=== PATIENT | male | born 1930 | race Caucasian/White ===

== ENCOUNTER 2016-08-12 14:23 | Emergency (ER) | payer MEDICARE, OTHER ==
[~2016-08-12 14:23] MED LIST: ACET-868 PO; AMLO10TA2 PO; ASPI81TA2 PO; BISA10SU8 RC; CRAN450T3 PO; FINA5TAB11 PO; LISI40TA4 PO; LOVA40TA2 PO; MAGN400O6 PO; MULT-70 PO; SENN8.6T6 PO
== END 2016-08-12 15:40 | disposition left against medical advice (07) ==
LOC: ER 14:25
DX: Z53.21 Procedure and treatment not carried out due to patient leaving prior to being seen by health care provider (principal)

== ENCOUNTER 2016-09-24 20:01 | Inpatient (IN) | payer MEDICARE, OTHER ==
[~2016-09-24] VITALS: Ht 160 cm; Wt 69.9 kg
[2016-09-24 20:47] LABS: BASOPHILS # (AUTO) 0.3 /CMM (0.0-0.2); BASOPHILS % (AUTO) 1.6 % (0.0-2.0); DIFF TOTAL % 100 %; EOSINOPHILS # (AUTO) 0.1 /CMM (0.0-0.7); EOSINOPHILS % (AUTO) 0.4 % (0.0-6.0); HEMATOCRIT 41 % (39-51); HEMOGLOBIN 13.2 g/dL (13.5-17.5); LYMPHOCYTES # (AUTO) 7.9 /CMM (0.8-4.8); LYMPHOCYTES % (AUTO) 50.7 % (20.0-44.0); MEAN CORPUSCULAR HEMOGLOBIN 27 PG (26.0-33.0); MEAN CORPUSCULAR HGB CONC 32 g/dl (31.0-36.0); MEAN CORPUSCULAR VOLUME 86 fL (80-96); MONOCYTES % (AUTO) 6.5 % (2.0-12.0); NEUTROPHILS # (AUTO) 6.5 /CMM (1.8-8.9); NEUTROPHILS % (AUTO) 40.8 % (43.0-81.0); PLATELET COUNT (AUTO) 215 /CMM (150-450); RED BLOOD CELL COUNT(AUTO) 4.83 MIL/uL (4.5-6.0); WHITE BLOOD COUNT (AUTO) 15.8 K/uL (4.3-11.0)
[2016-09-24 20:51] LABS: ANION GAP 13 (5-14); CALCIUM, SERUM 9.1 mg/dL (8.5-10.1); CARBON DIOXIDE 29 mmol/L (21-32); CHLORIDE 106 mmol/L (98-107); CREATININE 2.2 mg/dL (0.6-1.3); GLUCOSE 162 mg/dL (74-106); POTASSIUM 4.3 mmol/L (3.5-5.1); SODIUM SERUM 143 mmol/L (136-145); UREA NITROGEN, BLOOD 49 mg/dL (7-18)
[2016-09-24 20:58] LABS: ACETAMINOPHEN 2 ug/ml (10-30); ALANINE AMINOTRANSFERASE 22 U/L (12-78); ALBUMIN 3.8 g/dL (3.4-5.0); ASPARTATE AMINOTRANSFERASE 20 U/L (15-37); BILIRUBIN,DIRECT 0.1 mg/dL (0.0-0.2); BILIRUBIN,TOTAL 0.5 mg/dL (0.2-1.0); INDIRECT BILIRUBIN 0.4 mg/dL (0.0-1.1); TOTAL PROTEIN, SERUM 7.2 g/dL (6.4-8.2)
[2016-09-24 20:59] LABS: SALICYLATE < 2.8 mg/dL (2.8-20.0)
[2016-09-24 22:50] LABS: ADD UA MICROSCOPIC YES; KETONES,URINE TRACE (NEGATIVE); LEUKOCYTE ESTERASE ,URINE NEGATIVE (NEGATIVE)
[2016-09-24 22:53] LABS: ADD URINE CULTURE NO; RBC,URINE 0-2 /HPF (0-2); WBC,URINE 0-2 /HPF (0-3)
[2016-09-24 22:54] LABS: MUCUS,URINE Moderate /LPF (None Seen)
[2016-09-24 22:57] LABS: CANNABINOID, URINE NEGATIVE (NEGATIVE); PHENCYCLIDINE SCREEN,URINE NEGATIVE (NEGATIVE)
[2016-09-24 23:15] VITALS: BP 155/75
[2016-09-24] MEDS ORDERED: Z GUARD REMEDY 2 OZ OINT TP PRN (23:30)
[2016-09-24] MEDS ORDERED: BISACODYL SUPP (10 MG) 10 MG/SUPP.RECT SUPP.RECT RC PRN (23:30)
[2016-09-24] MEDS ORDERED: MAGNESIUM HYDROXIDE 30 ML UDC PO PRN ×2 (23:30)
[2016-09-24] MEDS ORDERED: IV NS 0.9% 1,000 ML IV PRN (23:30)
[2016-09-24] MEDS ORDERED: ZOLPIDEM TARTRATE 5 MG TABLET PO PRN (23:30)
[2016-09-24] MEDS ORDERED: HYDROCODONE/APAP 5/325MG 1 EACH TABLET PO PRN (23:30)
[2016-09-24] MEDS ORDERED: ONDANSETRON HCL/PF 4 MG/2 ML VIAL IVP PRN (23:30)
[2016-09-24] MEDS ORDERED: MAG HYDROX/AL HYDROX/SIMETH 30 ML UDC PO PRN (23:30)
[2016-09-24] MEDS ORDERED: ACETAMINOPHEN 325 MG TABLET PO PRN ×3 (23:30)
[2016-09-25] MEDS ORDERED: IV NS 0.9% 1,000 ML ONE (00:34)
[2016-09-25] MEDS ORDERED: IV SET PRIMARY PUMP SET 1 EA INFUS.SET MC ONE (00:35)
[2016-09-25] MEDS ORDERED: LORAZEPAM INJ 2 MG/ML VIAL IM ONE (03:30)
[2016-09-25] MEDS ORDERED: HALOPERIDOL LACTATE INJ 5 MG/ML VIAL IM ONE (03:30)
[2016-09-25 08:00] VITALS: BP 169/74
[2016-09-25] MEDS ORDERED: SENNOSIDES 8.6 MG TABLET PO SCH (08:30)
[2016-09-25] MEDS: MULTIVITAMINS,THERAPEUTIC 1 UDTAB TABLET PO SCH (08:54)
[2016-09-25] MEDS: AMLODIPINE BESYLATE 10 MG TABLET PO SCH (08:55)
[2016-09-25] MEDS: PANTOPRAZOLE 40 MG TABLET.DR PO SCH (08:55)
[2016-09-25] MEDS: ASPIRIN 81 MG TAB.CHEW PO SCH (08:55)
[2016-09-25] MEDS: FINASTERIDE (5 MG) 5 MG TABLET PO SCH (08:56)
[2016-09-25] MEDS: SENNOSIDES 8.6 MG TABLET PO SCH (08:56)
[2016-09-25 16:00] VITALS: BP 130/53
[2016-09-25 18:00] VITALS: BP 130/53
[2016-09-25] MEDS ORDERED: QUETIAPINE FUMARATE 25 MG TABLET PO PRN ×2 (18:37→19:00)
[2016-09-25] MEDS: QUETIAPINE FUMARATE 25 MG TABLET PO SCH (18:42)
[2016-09-25 20:00] VITALS: BP 128/63
[2016-09-25] MEDS ORDERED: ATORVASTATIN 40 MG TABLET PO SCH (22:00)
[2016-09-26] MEDS: PANTOPRAZOLE 40 MG TABLET.DR PO SCH (07:30)
[2016-09-26] MEDS: SENNOSIDES 8.6 MG TABLET PO SCH (09:00)
[2016-09-26] MEDS: AMLODIPINE BESYLATE 10 MG TABLET PO SCH (09:00)
[2016-09-26] MEDS: FINASTERIDE (5 MG) 5 MG TABLET PO SCH (09:00)
[2016-09-26] MEDS: ASPIRIN 81 MG TAB.CHEW PO SCH (09:00)
[2016-09-26] MEDS: QUETIAPINE FUMARATE 25 MG TABLET PO SCH (09:00)
[2016-09-26] MEDS: MULTIVITAMINS,THERAPEUTIC 1 UDTAB TABLET PO SCH (09:00)
[2016-09-26] MEDS ORDERED: MULT-24 PO (14:34)
[2016-09-26] MEDS ORDERED: ATOR40TA PO (14:34)
== END 2016-09-26 13:22 | DRG 640 ==
LOC: ER 20:04 → MEDSG2 22:07
DX: R62.7 Adult failure to thrive (principal); N17.0 Acute kidney failure with tubular necrosis; G93.41 Metabolic encephalopathy; F03.91 Unspecified dementia, unspecified severity, with behavioral disturbance; I12.9 Hypertensive chronic kidney disease with stage 1 through stage 4 chronic kidney disease, or unspecified chronic kidney disease; N40.0 Benign prostatic hyperplasia without lower urinary tract symptoms; R26.81 Unsteadiness on feet; R53.1 Weakness; F41.9 Anxiety disorder, unspecified; F29 Unspecified psychosis not due to a substance or known physiological condition; N18.9 Chronic kidney disease, unspecified; I25.10 Atherosclerotic heart disease of native coronary artery without angina pectoris; E11.22 Type 2 diabetes mellitus with diabetic chronic kidney disease; E78.5 Hyperlipidemia, unspecified
CPT/HCPCS: 36415; 71010-TC; 80048-TC; 80076-TC; 80305; 81000-TC; 84484-TC; 85025-TC; A4606; G0480; G6039-TC; J7030; Z7610

== ENCOUNTER 2016-09-26 13:39 | Inpatient (IN) | payer MEDICARE, OTHER ==
[~2016-09-26] VITALS: Ht 162.6 cm; Wt 68.0 kg
[2016-09-26] MEDS ORDERED: MAGNESIUM HYDROXIDE 30 ML UDC PO PRN (14:30)
[2016-09-26] MEDS ORDERED: LORAZEPAM 0.5 MG TABLET PO PRN (14:30)
[2016-09-26] MEDS ORDERED: ACETAMINOPHEN 325 MG TABLET PO PRN ×2 (14:30→16:30)
[2016-09-26] MEDS ORDERED: MAG HYDROX/AL HYDROX/SIMETH 30 ML UDC PO PRN (14:30)
[2016-09-26] MEDS ORDERED: MULT-24 PO (14:34)
[2016-09-26] MEDS ORDERED: ATOR40TA PO (14:34)
[2016-09-26 14:40] VITALS: BP 141/60
[2016-09-26 16:00] VITALS: BP 141/60
[2016-09-26] MEDS ORDERED: SENNOSIDES 8.6 MG TABLET PO PRN (16:30)
[2016-09-26] MEDS ORDERED: BISACODYL SUPP (10 MG) 10 MG/SUPP.RECT SUPP.RECT RC PRN (16:30)
[2016-09-26 20:00] VITALS: BP 140/73
[2016-09-26] MEDS: ATORVASTATIN 40 MG TABLET PO SCH (22:00)
[2016-09-27 08:00] VITALS: BP 150/76
[2016-09-27 08:10] LABS: ALBUMIN 3.1 g/dL (3.4-5.0); BILIRUBIN,TOTAL 0.7 mg/dL (0.2-1.0); CALCIUM, SERUM 8.6 mg/dL (8.5-10.1); CREATININE 1.2 mg/dL (0.6-1.3); TOTAL PROTEIN, SERUM 6.1 g/dL (6.4-8.2)
[2016-09-27] MEDS: AMLODIPINE BESYLATE 10 MG TABLET PO SCH (08:30)
[2016-09-27] MEDS: FINASTERIDE (5 MG) 5 MG TABLET PO SCH (08:32)
[2016-09-27] MEDS: LISINOPRIL (20MG) 20 MG TABLET PO SCH (08:33)
[2016-09-27] MEDS: MULTIVITAMINS,THERAPEUTIC 1 UDTAB TABLET PO SCH (08:34)
[2016-09-27] MEDS: ASPIRIN 81 MG TAB.CHEW PO SCH (08:34)
[2016-09-27] MEDS ORDERED: Medication Not On Formulary EA (Cranberry Extract (Cranberry) 450 MG) PO SCH (09:00)
[2016-09-27 16:00] VITALS: BP 150/75
[2016-09-27] MEDS: QUETIAPINE FUMARATE 25 MG TABLET PO SCH ×2 (17:21→22:26)
[2016-09-27 20:00] VITALS: BP 143/97
[2016-09-27] MEDS: ATORVASTATIN 40 MG TABLET PO SCH (22:26)
[2016-09-28] MEDS: ZOLPIDEM TARTRATE 5 MG TABLET PO PRN ×2 (00:20→22:23)
[2016-09-28 08:00] VITALS: BP 127/62
[2016-09-28] MEDS: ASPIRIN 81 MG TAB.CHEW PO SCH (08:24)
[2016-09-28] MEDS: QUETIAPINE FUMARATE 25 MG TABLET PO SCH ×3 (08:24→22:23)
[2016-09-28] MEDS: LISINOPRIL (20MG) 20 MG TABLET PO SCH (08:24)
[2016-09-28] MEDS: MULTIVITAMINS,THERAPEUTIC 1 UDTAB TABLET PO SCH (08:28)
[2016-09-28] MEDS: AMLODIPINE BESYLATE 10 MG TABLET PO SCH (08:28)
[2016-09-28] MEDS: FINASTERIDE (5 MG) 5 MG TABLET PO SCH (08:28)
[2016-09-28 16:00] VITALS: BP 152/64
[2016-09-28] MEDS ORDERED: QUETIAPINE FUMARATE 25 MG TABLET PO PRN (17:00)
[2016-09-28 20:00] VITALS: BP 137/78
[2016-09-28] MEDS: ATORVASTATIN 40 MG TABLET PO SCH (22:22)
[2016-09-29 08:00] VITALS: BP 119/60
[2016-09-29] MEDS: LISINOPRIL (20MG) 20 MG TABLET PO SCH ×2 (08:48→09:00)
[2016-09-29] MEDS: MULTIVITAMINS,THERAPEUTIC 1 UDTAB TABLET PO SCH ×2 (08:48→09:00)
[2016-09-29] MEDS: FINASTERIDE (5 MG) 5 MG TABLET PO SCH ×2 (08:48→09:00)
[2016-09-29] MEDS: AMLODIPINE BESYLATE 10 MG TABLET PO SCH ×2 (08:48→09:00)
[2016-09-29] MEDS: QUETIAPINE FUMARATE 25 MG TABLET PO SCH ×4 (08:48→21:39)
[2016-09-29] MEDS: ASPIRIN 81 MG TAB.CHEW PO SCH ×2 (08:49→09:00)
[2016-09-29 16:00] VITALS: BP 128/98
[2016-09-29 19:45] VITALS: BP 142/68
[2016-09-29] MEDS: ATORVASTATIN 40 MG TABLET PO SCH (21:37)
[2016-09-29] MEDS: ZOLPIDEM TARTRATE 5 MG TABLET PO PRN (21:40)
[2016-09-30 08:00] VITALS: BP 132/91
[2016-09-30] MEDS: MULTIVITAMINS,THERAPEUTIC 1 UDTAB TABLET PO SCH (09:00)
[2016-09-30] MEDS: AMLODIPINE BESYLATE 10 MG TABLET PO SCH (09:00)
[2016-09-30] MEDS: ASPIRIN 81 MG TAB.CHEW PO SCH (09:00)
[2016-09-30] MEDS: QUETIAPINE FUMARATE 25 MG TABLET PO SCH ×2 (09:00→21:53)
[2016-09-30] MEDS: LISINOPRIL (20MG) 20 MG TABLET PO SCH (09:00)
[2016-09-30] MEDS: FINASTERIDE (5 MG) 5 MG TABLET PO SCH (09:00)
[2016-09-30 16:20] VITALS: BP 140/80
[2016-09-30 20:00] VITALS: BP 140/73
[2016-09-30] MEDS: ATORVASTATIN 40 MG TABLET PO SCH (21:53)
[2016-09-30] MEDS: ZOLPIDEM TARTRATE 5 MG TABLET PO PRN (21:56)
[2016-10-01 08:00] VITALS: BP 129/60
[2016-10-01] MEDS: FINASTERIDE (5 MG) 5 MG TABLET PO SCH ×2 (09:00→09:11)
[2016-10-01] MEDS: LISINOPRIL (20MG) 20 MG TABLET PO SCH ×2 (09:00→09:11)
[2016-10-01] MEDS: ASPIRIN 81 MG TAB.CHEW PO SCH ×2 (09:00→09:11)
[2016-10-01] MEDS: MULTIVITAMINS,THERAPEUTIC 1 UDTAB TABLET PO SCH ×2 (09:00→09:11)
[2016-10-01] MEDS: AMLODIPINE BESYLATE 10 MG TABLET PO SCH ×2 (09:00→09:12)
[2016-10-01 16:00] VITALS: BP 130/57
[2016-10-01 20:18] VITALS: BP 124/73
[2016-10-01] MEDS: ATORVASTATIN 40 MG TABLET PO SCH (21:24)
[2016-10-01] MEDS: QUETIAPINE FUMARATE 25 MG TABLET PO SCH (21:25)
[2016-10-02 07:38] LABS: CALCIUM, SERUM 8.7 mg/dL (8.5-10.1); CREATININE 1.5 mg/dL (0.6-1.3); POTASSIUM 4.3 mmol/L (3.5-5.1)
[2016-10-02 08:10] VITALS: BP 105/60
[2016-10-02] MEDS: FINASTERIDE (5 MG) 5 MG TABLET PO SCH (09:00)
[2016-10-02] MEDS: LISINOPRIL (20MG) 20 MG TABLET PO SCH (09:00)
[2016-10-02] MEDS: AMLODIPINE BESYLATE 10 MG TABLET PO SCH (09:00)
[2016-10-02] MEDS: MULTIVITAMINS,THERAPEUTIC 1 UDTAB TABLET PO SCH (09:00)
[2016-10-02] MEDS: ASPIRIN 81 MG TAB.CHEW PO SCH (09:00)
[2016-10-02] MEDS: ATORVASTATIN 40 MG TABLET PO SCH (21:27)
[2016-10-02] MEDS: ZOLPIDEM TARTRATE 5 MG TABLET PO PRN (21:27)
[2016-10-02] MEDS ORDERED: QUETIAPINE FUMARATE 25 MG TABLET PO SCH (22:00)
[2016-10-03] MEDS: FINASTERIDE (5 MG) 5 MG TABLET PO SCH (08:36)
[2016-10-03] MEDS: MULTIVITAMINS,THERAPEUTIC 1 UDTAB TABLET PO SCH (08:36)
[2016-10-03] MEDS: LISINOPRIL (20MG) 20 MG TABLET PO SCH (08:36)
[2016-10-03] MEDS: ASPIRIN 81 MG TAB.CHEW PO SCH (08:36)
[2016-10-03] MEDS: AMLODIPINE BESYLATE 10 MG TABLET PO SCH (08:36)
[2016-10-03 09:12] VITALS: BP 111/76
== END 2016-10-03 11:00 | DRG 885 ==
LOC: GPS 13:39
PROVIDERS: ADMIT Psychiatry & Neurology Psychiatry; ATTEND Family Medicine
DX: F29 Unspecified psychosis not due to a substance or known physiological condition (principal); N18.3 Chronic kidney disease, stage 3 (moderate); N17.0 Acute kidney failure with tubular necrosis; F03.91 Unspecified dementia, unspecified severity, with behavioral disturbance; E87.0 Hyperosmolality and hypernatremia; N40.0 Benign prostatic hyperplasia without lower urinary tract symptoms; I12.9 Hypertensive chronic kidney disease with stage 1 through stage 4 chronic kidney disease, or unspecified chronic kidney disease; I25.10 Atherosclerotic heart disease of native coronary artery without angina pectoris; E78.5 Hyperlipidemia, unspecified; E11.22 Type 2 diabetes mellitus with diabetic chronic kidney disease; R62.7 Adult failure to thrive; D72.829 Elevated white blood cell count, unspecified; Z79.899 Other long term (current) drug therapy
CPT/HCPCS: 36415; 80048-TC; 80053-TC; 80061-TC; 97001-TC; 97116-TC; 97530-TC

== ENCOUNTER 2016-11-13 19:47 | Inpatient (IN) | payer MEDICARE, OTHER ==
[~2016-11-13] VITALS: Ht 167.6 cm; Wt 72.6 kg
[~2016-11-13 19:47] MED LIST changes: +ATOR40TA PO; -LOVA40TA2 PO; -MAGN400O6 PO; +MULT-24 PO; -MULT-70 PO
[2016-11-13 20:28] LABS: BASOPHILS # (AUTO) 0.2 /CMM (0.0-0.2); BASOPHILS % (AUTO) 1.1 % (0.0-2.0); EOSINOPHILS # (AUTO) 0.2 /CMM (0.0-0.7); EOSINOPHILS % (AUTO) 1.3 % (0.0-6.0); HEMATOCRIT 40 % (39-51); LYMPHOCYTES # (AUTO) 6.6 /CMM (0.8-4.8); MEAN CORPUSCULAR HEMOGLOBIN 28 PG (26.0-33.0); MEAN CORPUSCULAR HGB CONC 33 g/dl (31.0-36.0); MEAN CORPUSCULAR VOLUME 86 fL (80-96); MONOCYTES # (AUTO) 0.8 /CMM (0.1-1.30); NEUTROPHILS # (AUTO) 8.3 /CMM (1.8-8.9); NEUTROPHILS % (AUTO) 51.6 % (43.0-81.0); PLATELET COUNT (AUTO) 252 /CMM (150-450); RDW COEFFICIENT OF VARIATION 13.9 (11.5-15.0); RED BLOOD CELL COUNT(AUTO) 4.63 MIL/uL (4.5-6.0); WHITE BLOOD COUNT (AUTO) 16.1 K/uL (4.3-11.0)
[2016-11-13 20:40] LABS: ALANINE AMINOTRANSFERASE 40 U/L (12-78); ALBUMIN 3.3 g/dL (3.4-5.0); ALKALINE PHOSPHATASE 122 U/L (46-116); ASPARTATE AMINOTRANSFERASE 27 U/L (15-37); BILIRUBIN,DIRECT 0.1 mg/dL (0.0-0.2); BILIRUBIN,TOTAL 0.6 mg/dL (0.2-1.0); CALCIUM, SERUM 9.1 mg/dL (8.5-10.1); CARBON DIOXIDE 29 mmol/L (21-32); CHLORIDE 106 mmol/L (98-107); CREATININE 1.2 mg/dL (0.6-1.3); GLUCOSE 103 mg/dL (74-106); POTASSIUM 4.3 mmol/L (3.5-5.1); SODIUM SERUM 142 mmol/L (136-145); TOTAL PROTEIN, SERUM 6.7 g/dL (6.4-8.2); UREA NITROGEN, BLOOD 28 mg/dL (7-18)
[2016-11-13 20:41] LABS: ACETAMINOPHEN 0 ug/ml (10-30); ALCOHOL, BLOOD < 3 mg/dL (0-0); SALICYLATE 1.8 mg/dL (2.8-20.0)
[2016-11-13] MEDS ORDERED: LIDOCAINE 2% JEL UROJET 10 ML MM STA (20:55)
[2016-11-13] MEDS ORDERED: LIDOCAINE 2% JEL UROJET 10 ML MM ONE (20:56)
[2016-11-13 21:22] LABS: APPEARANCE,URINE Clear (CLEAR); BILIRUBIN,URINE Negative (NEGATIVE); BLOOD, URINE Large Ery/uL (NEGATIVE); COLOR,URINE Yellow (YELLOW); KETONES,URINE Negative (NEGATIVE); LEUKOCYTE ESTERASE ,URINE Small (NEGATIVE); NITRITE, URINE Positive (NEGATIVE); PH,URINE 6.5 (5.0-8.0); PROTEIN,URINE >=300 mg/dl (NEGATIVE); UGLUCOSE Negative (NEGATIVE); UROBILINOGEN,URINE 0.2 EU/dL (0.2)
[2016-11-13 21:24] LABS: T4 (THYROXINE) 9.3 ug/dL (4.7-13.3); THYROID STIMULATING HORMONE 0.702 uIU/mL (0.358-3.74)
[2016-11-13 21:27] LABS: CANNABINOID, URINE NEGATIVE (NEGATIVE); PHENCYCLIDINE SCREEN,URINE NEGATIVE (NEGATIVE)
[2016-11-13 21:51] LABS: ADD URINE CULTURE YES; BACTERIA,URINE Many /HPF (None Seen); SQUAMOUS EPITHELIAL CELL,UR Rare /HPF (None Seen); WBC,URINE TOO NUMEROUS TO COUN /HPF (0-3)
[2016-11-13 21:52] LABS: URINE AMORPHOUS URATE Few /HPF (None Seen)
[2016-11-13] MEDS ORDERED: IV SET PRIMARY PUMP SET 1 EA INFUS.SET MC ONE ×2 (21:59→23:26)
[2016-11-13] MEDS ORDERED: IV NS 0.9% 100 ML IV ONE (21:59)
[2016-11-13] MEDS ORDERED: AZTREONAM 1 G VIAL ONE (21:59)
[2016-11-13] MEDS ORDERED: LEVOFLOXACIN 750 MG /D5W 150ML 150 ML IV ONE ×2 (22:00→23:26)
[2016-11-13] MEDS ORDERED: AZTREONAM 1 G in IV NS 0.9% 100 ML IV ONE (22:00)
[2016-11-13 23:51] VITALS: BP 143/95
[2016-11-14] VITALS: BP 143/95
[2016-11-14] MEDS ORDERED: MAGNESIUM HYDROXIDE 30 ML UDC PO PRN (00:30)
[2016-11-14] MEDS ORDERED: ZOLPIDEM TARTRATE 5 MG TABLET PO PRN (00:30)
[2016-11-14] MEDS ORDERED: MAG HYDROX/AL HYDROX/SIMETH 30 ML UDC PO PRN (00:30)
[2016-11-14] MEDS ORDERED: ACETAMINOPHEN 325 MG TABLET PO PRN (00:30)
[2016-11-14] MEDS ORDERED: Z GUARD REMEDY 2 OZ OINT TP PRN (00:30)
[2016-11-14] MEDS ORDERED: ENOXAPARIN SODIUM 30 MG/0.3 ML DISP.SYRIN SQ SCH (00:30)
[2016-11-14] MEDS ORDERED: SENNOSIDES 8.6 MG TABLET PO PRN (00:30)
[2016-11-14] MEDS ORDERED: ONDANSETRON HCL/PF 4 MG/2 ML VIAL IVP PRN (00:30)
[2016-11-14] MEDS: IV 1/2NS 1000 ML 1,000 ML IV PRN ×2 (00:54→18:34)
[2016-11-14] MEDS ORDERED: LORAZEPAM INJ 2 MG/ML VIAL ONE ×2 (01:07→03:57)
[2016-11-14] MEDS: LORAZEPAM INJ 2 MG/ML VIAL IV PRN (01:13)
[2016-11-14 04:00] VITALS: BP 140/87
[2016-11-14] MEDS ORDERED: LORAZEPAM INJ 2 MG/ML VIAL IV ONE (04:00)
[2016-11-14 07:13] LABS: PHOSPHORUS 3.6 mg/dL (2.5-4.9)
[2016-11-14 08:00] VITALS: BP 129/78
[2016-11-14] MEDS: FINASTERIDE (5 MG) 5 MG TABLET PO SCH ×2 (09:00→09:56)
[2016-11-14] MEDS: MULTIVITAMINS,THERAPEUTIC 1 UDTAB TABLET PO SCH ×2 (09:00→09:56)
[2016-11-14] MEDS: LISINOPRIL (20MG) 20 MG TABLET PO SCH ×2 (09:00→09:56)
[2016-11-14] MEDS: ASPIRIN 81 MG TAB.CHEW PO SCH ×2 (09:00→09:56)
[2016-11-14] MEDS: AMLODIPINE BESYLATE 10 MG TABLET PO SCH ×2 (09:00→09:56)
[2016-11-14] MEDS: AZTREONAM 1 G in IV NS 0.9% 100 ML IV SCH ×2 (09:48→22:00)
[2016-11-14] MEDS ORDERED: SECONDARY IV SET 1 EA INFUS.SET MC ONE (09:48)
[2016-11-14] MEDS: PANTOPRAZOLE 40 MG TABLET.DR PO SCH (09:56)
[2016-11-14 11:58] LABS: CALCIUM, SERUM 8.5 mg/dL (8.5-10.1); CREATININE 1.2 mg/dL (0.6-1.3); POTASSIUM 4.2 mmol/L (3.5-5.1)
[2016-11-14 12:12] LABS: BASOPHILS % (AUTO) 0.2 % (0.0-2.0); EOSINOPHILS # (AUTO) 0.1 /CMM (0.0-0.7); EOSINOPHILS % (AUTO) 0.7 % (0.0-6.0); HEMATOCRIT 37 % (39-51); HEMOGLOBIN 11.9 g/dL (13.5-17.5); LYMPHOCYTES # (AUTO) 5.5 /CMM (0.8-4.8); LYMPHOCYTES % (AUTO) 30.1 % (20.0-44.0); MEAN CORPUSCULAR HEMOGLOBIN 28 PG (26.0-33.0); MEAN CORPUSCULAR HGB CONC 32 g/dl (31.0-36.0); MEAN CORPUSCULAR VOLUME 87 fL (80-96); MONOCYTES # (AUTO) 0.7 /CMM (0.1-1.30); MONOCYTES % (AUTO) 3.6 % (2.0-12.0); NEUTROPHILS % (AUTO) 65.4 % (43.0-81.0); PLATELET COUNT (AUTO) 232 /CMM (150-450); RDW COEFFICIENT OF VARIATION 14.7 (11.5-15.0); RED BLOOD CELL COUNT(AUTO) 4.29 MIL/uL (4.5-6.0); WHITE BLOOD COUNT (AUTO) 18.3 K/uL (4.3-11.0)
[2016-11-14 16:00] VITALS: BP 161/85
[2016-11-14] MEDS: ATORVASTATIN 40 MG TABLET PO SCH (21:55)
[2016-11-14] MEDS: QUETIAPINE FUMARATE 25 MG TABLET PO SCH (21:55)
[2016-11-14] MEDS: ENOXAPARIN SODIUM 30 MG/0.3 ML DISP.SYRIN SQ SCH (21:57)
[2016-11-14 22:00] VITALS: BP 157/92
[2016-11-15 06:55] LABS: BASOPHILS % (AUTO) 0.3 % (0.0-2.0); EOSINOPHILS # (AUTO) 0.1 /CMM (0.0-0.7); EOSINOPHILS % (AUTO) 1.1 % (0.0-6.0); HEMATOCRIT 35 % (39-51); HEMOGLOBIN 11.4 g/dL (13.5-17.5); LYMPHOCYTES # (AUTO) 6.9 /CMM (0.8-4.8); LYMPHOCYTES % (AUTO) 52.4 % (20.0-44.0); MEAN CORPUSCULAR HEMOGLOBIN 28 PG (26.0-33.0); MEAN CORPUSCULAR HGB CONC 32 g/dl (31.0-36.0); MEAN CORPUSCULAR VOLUME 87 fL (80-96); MONOCYTES % (AUTO) 7.3 % (2.0-12.0); NEUTROPHILS # (AUTO) 5.1 /CMM (1.8-8.9); NEUTROPHILS % (AUTO) 38.9 % (43.0-81.0); PLATELET COUNT (AUTO) 175 /CMM (150-450); RDW COEFFICIENT OF VARIATION 14.9 (11.5-15.0); RED BLOOD CELL COUNT(AUTO) 4.07 MIL/uL (4.5-6.0); WHITE BLOOD COUNT (AUTO) 13.2 K/uL (4.3-11.0)
[2016-11-15 07:21] LABS: CALCIUM, SERUM 8.4 mg/dL (8.5-10.1); CREATININE 1.2 mg/dL (0.6-1.3); MAGNESIUM 2.1 mg/dL (1.8-2.4); POTASSIUM 4.9 mmol/L (3.5-5.1)
[2016-11-15 08:00] VITALS: BP 161/88
[2016-11-15] MEDS: PANTOPRAZOLE 40 MG TABLET.DR PO SCH (08:12)
[2016-11-15] MEDS: MULTIVITAMINS,THERAPEUTIC 1 UDTAB TABLET PO SCH (08:12)
[2016-11-15] MEDS: ASPIRIN 81 MG TAB.CHEW PO SCH (08:12)
[2016-11-15] MEDS: LISINOPRIL (20MG) 20 MG TABLET PO SCH (08:12)
[2016-11-15] MEDS: FINASTERIDE (5 MG) 5 MG TABLET PO SCH (08:12)
[2016-11-15] MEDS: AMLODIPINE BESYLATE 10 MG TABLET PO SCH (08:13)
[2016-11-15] MEDS: AZTREONAM 1 G in IV NS 0.9% 100 ML IV SCH ×2 (08:16→21:01)
[2016-11-15 09:59] LABS: ANISOCYTOSIS 1+; EOSINOPHILS % (MANUAL) 1 % (0-4); LYMPHOCYTES % (MANUAL) 47 % (16-48); MONOCYTES % (MANUAL) 2 % (0-11.0); NEUTROPHILS % (MANUAL) 50 (42-76); PLATELET ESTIMATE ADEQUATE
[2016-11-15] MEDS: LORAZEPAM INJ 2 MG/ML VIAL IV PRN ×2 (10:57→17:01)
[2016-11-15] MEDS: IV 1/2NS 1000 ML 1,000 ML IV PRN (12:19)
[2016-11-15 16:00] VITALS: BP 151/87
[2016-11-15 20:20] VITALS: BP 142/75
[2016-11-15] MEDS: ENOXAPARIN SODIUM 30 MG/0.3 ML DISP.SYRIN SQ SCH (21:06)
[2016-11-15] MEDS: ATORVASTATIN 40 MG TABLET PO SCH (21:08)
[2016-11-15] MEDS: QUETIAPINE FUMARATE 25 MG TABLET PO SCH (21:08)
[2016-11-16] MEDS: IV 1/2NS 1000 ML 1,000 ML IV PRN ×2 (01:43→21:35)
[2016-11-16] MEDS: PANTOPRAZOLE 40 MG TABLET.DR PO SCH ×2 (07:30→12:16)
[2016-11-16 08:00] VITALS: BP 146/74
[2016-11-16] MEDS: LISINOPRIL (20MG) 20 MG TABLET PO SCH ×2 (09:00→12:14)
[2016-11-16] MEDS: AMLODIPINE BESYLATE 10 MG TABLET PO SCH ×2 (09:00→12:14)
[2016-11-16] MEDS: FINASTERIDE (5 MG) 5 MG TABLET PO SCH ×2 (09:00→12:16)
[2016-11-16] MEDS: MULTIVITAMINS,THERAPEUTIC 1 UDTAB TABLET PO SCH ×2 (09:00→12:15)
[2016-11-16] MEDS: ASPIRIN 81 MG TAB.CHEW PO SCH ×2 (09:00→12:16)
[2016-11-16] MEDS: AZTREONAM 1 G in IV NS 0.9% 100 ML IV SCH ×2 (09:46→21:30)
[2016-11-16 14:59] LABS: BASOPHILS % (AUTO) 0.2 % (0.0-2.0); EOSINOPHILS # (AUTO) 0.1 /CMM (0.0-0.7); EOSINOPHILS % (AUTO) 1.1 % (0.0-6.0); HEMATOCRIT 36 % (39-51); HEMOGLOBIN 11.6 g/dL (13.5-17.5); LYMPHOCYTES # (AUTO) 5.2 /CMM (0.8-4.8); LYMPHOCYTES % (AUTO) 39.4 % (20.0-44.0); MEAN CORPUSCULAR HEMOGLOBIN 28 PG (26.0-33.0); MEAN CORPUSCULAR HGB CONC 33 g/dl (31.0-36.0); MEAN CORPUSCULAR VOLUME 86 fL (80-96); MONOCYTES # (AUTO) 0.7 /CMM (0.1-1.30); NEUTROPHILS # (AUTO) 7.2 /CMM (1.8-8.9); NEUTROPHILS % (AUTO) 54.3 % (43.0-81.0); PLATELET COUNT (AUTO) 213 /CMM (150-450); RDW COEFFICIENT OF VARIATION 14.6 (11.5-15.0); RED BLOOD CELL COUNT(AUTO) 4.19 MIL/uL (4.5-6.0); WHITE BLOOD COUNT (AUTO) 13.2 K/uL (4.3-11.0)
[2016-11-16 15:11] LABS: CALCIUM, SERUM 8.2 mg/dL (8.5-10.1); MAGNESIUM 1.9 mg/dL (1.8-2.4); PHOSPHORUS 3.7 mg/dL (2.5-4.9); POTASSIUM 3.9 mmol/L (3.5-5.1)
[2016-11-16 16:00] VITALS: BP 164/73
[2016-11-16] MEDS: HALOPERIDOL LACTATE INJ 5 MG/ML VIAL IM PRN ×2 (18:38→18:39)
[2016-11-16 19:59] VITALS: BP 147/69
[2016-11-16 20:00] VITALS: BP 147/69
[2016-11-16] MEDS: ENOXAPARIN SODIUM 30 MG/0.3 ML DISP.SYRIN SQ SCH (21:36)
[2016-11-16] MEDS: ATORVASTATIN 40 MG TABLET PO SCH (21:43)
[2016-11-16] MEDS: QUETIAPINE FUMARATE 25 MG TABLET PO SCH (21:43)
[2016-11-17] MEDS: PANTOPRAZOLE 40 MG TABLET.DR PO SCH ×2 (07:30→09:43)
[2016-11-17] MEDS: LISINOPRIL (20MG) 20 MG TABLET PO SCH ×2 (09:00→09:43)
[2016-11-17] MEDS: MULTIVITAMINS,THERAPEUTIC 1 UDTAB TABLET PO SCH ×2 (09:00→09:43)
[2016-11-17] MEDS: FINASTERIDE (5 MG) 5 MG TABLET PO SCH ×2 (09:00→09:43)
[2016-11-17] MEDS: ASPIRIN 81 MG TAB.CHEW PO SCH ×2 (09:00→09:43)
[2016-11-17] MEDS: AMLODIPINE BESYLATE 10 MG TABLET PO SCH ×2 (09:00→09:44)
[2016-11-17] MEDS: AZTREONAM 1 G in IV NS 0.9% 100 ML IV SCH ×2 (09:29→20:53)
[2016-11-17] MEDS: HALOPERIDOL LACTATE INJ 5 MG/ML VIAL IM PRN ×2 (15:24→19:27)
[2016-11-17 16:00] VITALS: BP 155/79
[2016-11-17 20:00] VITALS: BP_SYST 128; BP_SYST 176; BP_DIAS 72; BP_DIAS 89
[2016-11-17 20:30] VITALS: BP 128/72
[2016-11-17] MEDS ORDERED: IV SET PRIMARY PUMP SET 1 EA INFUS.SET MC ONE (20:45)
[2016-11-17] MEDS ORDERED: SECONDARY IV SET 1 EA INFUS.SET MC ONE (20:46)
[2016-11-17] MEDS: IV 1/2NS 1000 ML 1,000 ML IV PRN (20:50)
[2016-11-17] MEDS: QUETIAPINE FUMARATE 25 MG TABLET PO SCH (22:13)
[2016-11-17] MEDS: ATORVASTATIN 40 MG TABLET PO SCH (22:13)
[2016-11-17] MEDS: ENOXAPARIN SODIUM 30 MG/0.3 ML DISP.SYRIN SQ SCH (22:14)
[2016-11-18] MEDS: PANTOPRAZOLE 40 MG TABLET.DR PO SCH (07:30)
[2016-11-18] MEDS: AZTREONAM 1 G in IV NS 0.9% 100 ML IV SCH ×2 (08:36→21:17)
[2016-11-18] MEDS: MULTIVITAMINS,THERAPEUTIC 1 UDTAB TABLET PO SCH (08:46)
[2016-11-18] MEDS: FINASTERIDE (5 MG) 5 MG TABLET PO SCH (08:46)
[2016-11-18] MEDS: ASPIRIN 81 MG TAB.CHEW PO SCH (08:46)
[2016-11-18] MEDS: AMLODIPINE BESYLATE 10 MG TABLET PO SCH (08:47)
[2016-11-18] MEDS: LISINOPRIL (20MG) 20 MG TABLET PO SCH (08:48)
[2016-11-18] MEDS: QUETIAPINE FUMARATE 25 MG TABLET PO SCH ×3 (10:30→21:16)
[2016-11-18] MEDS: HALOPERIDOL LACTATE INJ 5 MG/ML VIAL IM PRN (13:10)
[2016-11-18 14:48] LABS: BASOPHILS % (AUTO) 0.2 % (0.0-2.0); EOSINOPHILS # (AUTO) 0.2 /CMM (0.0-0.7); EOSINOPHILS % (AUTO) 1.2 % (0.0-6.0); HEMATOCRIT 37 % (39-51); HEMOGLOBIN 11.8 g/dL (13.5-17.5); LYMPHOCYTES # (AUTO) 5.3 /CMM (0.8-4.8); LYMPHOCYTES % (AUTO) 32.8 % (20.0-44.0); MEAN CORPUSCULAR HEMOGLOBIN 28 PG (26.0-33.0); MEAN CORPUSCULAR HGB CONC 32 g/dl (31.0-36.0); MEAN CORPUSCULAR VOLUME 86 fL (80-96); MONOCYTES # (AUTO) 1.1 /CMM (0.1-1.30); MONOCYTES % (AUTO) 6.6 % (2.0-12.0); NEUTROPHILS # (AUTO) 9.5 /CMM (1.8-8.9); NEUTROPHILS % (AUTO) 59.2 % (43.0-81.0); PLATELET COUNT (AUTO) 219 /CMM (150-450); RDW COEFFICIENT OF VARIATION 14.3 (11.5-15.0); RED BLOOD CELL COUNT(AUTO) 4.27 MIL/uL (4.5-6.0); WHITE BLOOD COUNT (AUTO) 16.1 K/uL (4.3-11.0)
[2016-11-18 14:49] LABS: CALCIUM, SERUM 8.1 mg/dL (8.5-10.1); CREATININE 1.2 mg/dL (0.6-1.3); MAGNESIUM 1.8 mg/dL (1.8-2.4); PHOSPHORUS 3.2 mg/dL (2.5-4.9); POTASSIUM 3.6 mmol/L (3.5-5.1)
[2016-11-18 20:00] VITALS: BP 158/77
[2016-11-18] MEDS: ATORVASTATIN 40 MG TABLET PO SCH (21:16)
[2016-11-18] MEDS: ENOXAPARIN SODIUM 30 MG/0.3 ML DISP.SYRIN SQ SCH (21:16)
[2016-11-19] MEDS ORDERED: IV NS 0.9% 0 ML IV ONE (01:41)
[2016-11-19] MEDS ORDERED: IV NS 0.9% 100 ML IV ONE (01:44)
[2016-11-19] MEDS ORDERED: SECONDARY IV SET 1 EA INFUS.SET MC ONE ×2 (02:23→16:45)
[2016-11-19] MEDS ORDERED: IMIPENEM/CILASTATIN 500 MG/VIAL IV ONE (02:40)
[2016-11-19] MEDS: IV 1/2NS 1000 ML 1,000 ML IV PRN ×2 (02:56→18:42)
[2016-11-19] MEDS ORDERED: IMIPENEM/CILASTATIN 500 MG in IV NS 0.9% 100 ML IV SCH (05:00)
[2016-11-19] MEDS: PANTOPRAZOLE 40 MG TABLET.DR PO SCH (07:30)
[2016-11-19 08:00] VITALS: BP 154/85
[2016-11-19] MEDS: ASPIRIN 81 MG TAB.CHEW PO SCH (09:00)
[2016-11-19] MEDS: FINASTERIDE (5 MG) 5 MG TABLET PO SCH (09:00)
[2016-11-19] MEDS: AMLODIPINE BESYLATE 10 MG TABLET PO SCH (09:00)
[2016-11-19] MEDS: QUETIAPINE FUMARATE 25 MG TABLET PO SCH ×3 (09:00→21:44)
[2016-11-19] MEDS: MULTIVITAMINS,THERAPEUTIC 1 UDTAB TABLET PO SCH (09:00)
[2016-11-19] MEDS: LISINOPRIL (20MG) 20 MG TABLET PO SCH (09:00)
[2016-11-19 10:01] LABS: MAGNESIUM 1.8 mg/dL (1.8-2.4); PHOSPHORUS 3.4 mg/dL (2.5-4.9); POTASSIUM 3.8 mmol/L (3.5-5.1)
[2016-11-19 10:02] LABS: BASOPHILS % (AUTO) 0.4 % (0.0-2.0); EOSINOPHILS # (AUTO) 0.3 /CMM (0.0-0.7); EOSINOPHILS % (AUTO) 1.9 % (0.0-6.0); HEMATOCRIT 36 % (39-51); HEMOGLOBIN 11.4 g/dL (13.5-17.5); LYMPHOCYTES # (AUTO) 6.7 /CMM (0.8-4.8); LYMPHOCYTES % (AUTO) 49.8 % (20.0-44.0); MEAN CORPUSCULAR HEMOGLOBIN 28 PG (26.0-33.0); MEAN CORPUSCULAR HGB CONC 32 g/dl (31.0-36.0); MEAN CORPUSCULAR VOLUME 87 fL (80-96); MONOCYTES % (AUTO) 7.5 % (2.0-12.0); NEUTROPHILS # (AUTO) 5.5 /CMM (1.8-8.9); NEUTROPHILS % (AUTO) 40.4 % (43.0-81.0); PLATELET COUNT (AUTO) 204 /CMM (150-450); RDW COEFFICIENT OF VARIATION 14.8 (11.5-15.0); RED BLOOD CELL COUNT(AUTO) 4.12 MIL/uL (4.5-6.0); WHITE BLOOD COUNT (AUTO) 13.5 K/uL (4.3-11.0)
[2016-11-19] MEDS ORDERED: HALOPERIDOL LACTATE INJ 5 MG/ML VIAL IM PRN (10:30)
[2016-11-19 10:46] LABS: ANISOCYTOSIS 1+; EOSINOPHILS % (MANUAL) 1 % (0-4); LYMPHOCYTES % (MANUAL) 47 % (16-48); MONOCYTES % (MANUAL) 6 % (0-11.0); NEUTROPHILS % (MANUAL) 46 (42-76); PLATELET ESTIMATE ADEQUATE
[2016-11-19] MEDS: CLOTRIMAZOLE 1% 15 GM TUBE TP SCH ×2 (13:13→17:03)
[2016-11-19 16:10] VITALS: BP 133/75
[2016-11-19] MEDS: MEROPENEM 500 MG in IV NS 0.9% 50 ML IV SCH (16:52)
[2016-11-19 20:00] VITALS: BP 113/68
[2016-11-19] MEDS: ATORVASTATIN 40 MG TABLET PO SCH (21:44)
[2016-11-19] MEDS: ENOXAPARIN SODIUM 30 MG/0.3 ML DISP.SYRIN SQ SCH (21:45)
[2016-11-20] MEDS: MEROPENEM 500 MG in IV NS 0.9% 50 ML IV SCH ×2 (04:41→17:47)
[2016-11-20] MEDS: IV 1/2NS 1000 ML 1,000 ML IV PRN (06:46)
[2016-11-20 08:00] VITALS: BP 158/88
[2016-11-20] MEDS: QUETIAPINE FUMARATE 25 MG TABLET PO SCH ×3 (08:20→22:48)
[2016-11-20] MEDS: LISINOPRIL (20MG) 20 MG TABLET PO SCH (08:20)
[2016-11-20] MEDS: AMLODIPINE BESYLATE 10 MG TABLET PO SCH (08:20)
[2016-11-20] MEDS: MULTIVITAMINS,THERAPEUTIC 1 UDTAB TABLET PO SCH (08:21)
[2016-11-20] MEDS: ASPIRIN 81 MG TAB.CHEW PO SCH (08:21)
[2016-11-20] MEDS: FINASTERIDE (5 MG) 5 MG TABLET PO SCH (08:21)
[2016-11-20] MEDS: PANTOPRAZOLE 40 MG TABLET.DR PO SCH (08:21)
[2016-11-20] MEDS: CLOTRIMAZOLE 1% 15 GM TUBE TP SCH ×2 (09:49→17:47)
[2016-11-20 10:01] LABS: BASOPHILS % (AUTO) 0.3 % (0.0-2.0); EOSINOPHILS # (AUTO) 0.2 /CMM (0.0-0.7); EOSINOPHILS % (AUTO) 1.8 % (0.0-6.0); HEMATOCRIT 36 % (39-51); HEMOGLOBIN 11.4 g/dL (13.5-17.5); LYMPHOCYTES # (AUTO) 5.7 /CMM (0.8-4.8); LYMPHOCYTES % (AUTO) 47.1 % (20.0-44.0); MEAN CORPUSCULAR HEMOGLOBIN 28 PG (26.0-33.0); MEAN CORPUSCULAR HGB CONC 32 g/dl (31.0-36.0); MEAN CORPUSCULAR VOLUME 86 fL (80-96); MONOCYTES # (AUTO) 0.8 /CMM (0.1-1.30); MONOCYTES % (AUTO) 6.6 % (2.0-12.0); NEUTROPHILS # (AUTO) 5.3 /CMM (1.8-8.9); NEUTROPHILS % (AUTO) 44.2 % (43.0-81.0); PLATELET COUNT (AUTO) 232 /CMM (150-450); RDW COEFFICIENT OF VARIATION 14.8 (11.5-15.0); RED BLOOD CELL COUNT(AUTO) 4.12 MIL/uL (4.5-6.0)
[2016-11-20 10:16] LABS: CALCIUM, SERUM 8.2 mg/dL (8.5-10.1); MAGNESIUM 1.9 mg/dL (1.8-2.4); POTASSIUM 3.6 mmol/L (3.5-5.1)
[2016-11-20 10:27] LABS: EOSINOPHILS % (MANUAL) 2 % (0-4); LYMPHOCYTES % (MANUAL) 54 % (16-48); MONOCYTES % (MANUAL) 3 % (0-11.0)
[2016-11-20 10:34] LABS: NEUTROPHILS % (MANUAL) 41 (42-76)
[2016-11-20] MEDS: LORAZEPAM INJ 2 MG/ML VIAL IV PRN (16:14)
[2016-11-20 17:57] VITALS: BP 163/69
[2016-11-20] MEDS: ATORVASTATIN 40 MG TABLET PO SCH (22:48)
[2016-11-20] MEDS: ENOXAPARIN SODIUM 30 MG/0.3 ML DISP.SYRIN SQ SCH (22:49)
[2016-11-21] MEDS: IV 1/2NS 1000 ML 1,000 ML IV PRN (04:34)
[2016-11-21] MEDS: MEROPENEM 500 MG in IV NS 0.9% 50 ML IV SCH (04:40)
[2016-11-21] MEDS: PANTOPRAZOLE 40 MG TABLET.DR PO SCH (08:28)
[2016-11-21] MEDS: ASPIRIN 81 MG TAB.CHEW PO SCH (08:28)
[2016-11-21] MEDS: MULTIVITAMINS,THERAPEUTIC 1 UDTAB TABLET PO SCH (08:28)
[2016-11-21] MEDS: FINASTERIDE (5 MG) 5 MG TABLET PO SCH (08:28)
[2016-11-21] MEDS: QUETIAPINE FUMARATE 25 MG TABLET PO SCH (08:29)
[2016-11-21 08:30] VITALS: BP 157/93
[2016-11-21] MEDS: AMLODIPINE BESYLATE 10 MG TABLET PO SCH (08:30)
[2016-11-21] MEDS: LISINOPRIL (20MG) 20 MG TABLET PO SCH (08:30)
[2016-11-21] MEDS: CLOTRIMAZOLE 1% 15 GM TUBE TP SCH ×2 (08:33→16:25)
[2016-11-21] MEDS ORDERED: QUET25TA PO ×2 (12:01)
[2016-11-21] MEDS ORDERED: SULF1TAB48 PO (12:08)
[2016-11-21] MEDS ORDERED: MEROPENEM 1 G in IV NS 0.9% 100 ML IV SCH (17:00)
[2016-11-21] MEDS ORDERED: QUETIAPINE FUMARATE 25 MG TABLET PO SCH (17:00)
[2016-11-21] MEDS: LORAZEPAM INJ 2 MG/ML VIAL IV PRN (18:18)
[2016-11-21] MEDS ORDERED: ENOXAPARIN SODIUM 30 MG/0.3 ML DISP.SYRIN SQ SCH (21:00)
== END 2016-11-21 20:30 | DRG 871 ==
LOC: ER 19:52 → MED 22:48 → TELE 11-14 02:27 → MED 11-14 15:35
PROVIDERS: ADMIT Nurse Practitioner Acute Care; ATTEND Nurse Practitioner Acute Care
DX: A41.9 Sepsis, unspecified organism (principal); G93.40 Encephalopathy, unspecified; N17.0 Acute kidney failure with tubular necrosis; N39.0 Urinary tract infection, site not specified; F03.91 Unspecified dementia, unspecified severity, with behavioral disturbance; J98.11 Atelectasis; I25.10 Atherosclerotic heart disease of native coronary artery without angina pectoris; Z95.1 Presence of aortocoronary bypass graft; I12.9 Hypertensive chronic kidney disease with stage 1 through stage 4 chronic kidney disease, or unspecified chronic kidney disease; N18.9 Chronic kidney disease, unspecified; N40.0 Benign prostatic hyperplasia without lower urinary tract symptoms; R62.7 Adult failure to thrive; E86.0 Dehydration; E78.5 Hyperlipidemia, unspecified; E11.22 Type 2 diabetes mellitus with diabetic chronic kidney disease; F29 Unspecified psychosis not due to a substance or known physiological condition; F41.9 Anxiety disorder, unspecified; Z79.82 Long term (current) use of aspirin; J44.9 Chronic obstructive pulmonary disease, unspecified; Z79.899 Other long term (current) drug therapy; Z88.0 Allergy status to penicillin
CPT/HCPCS: 36415; 71010-TC; 80048-TC; 80061-TC; 80076-TC; 80305; 81000-TC; 83605-TC; 83735-TC; 84100-TC; 84436-TC; 84443-TC; 84481; 85025-TC; 87040-TC; 87081-TC; 87086-TC; 87186-TC; 97003-TC; A4216; A4606; A6402; G0480; G6039-TC; J0743; J1630; J1650; J1956; J2060; J2185; J3490; J7030; Z7610

== ENCOUNTER 2016-11-21 21:22 | Inpatient (IN) | payer MEDICARE, OTHER ==
[~2016-11-21] VITALS: Ht 172.7 cm; Wt 81.6 kg
[2016-11-21 20:30] VITALS: BP 140/84
--- NOTE | 2016-11-21 20:30 | NUR ---
GPS WINE STEWARD/STEWARDESS NOTES ADMITTED THIS 86 YEAR OLD MALE ON 5150 HOLD FOR DANGER TO OTHERS AND GRAVE DISABILITY. PATIENT CAME FROM MED. SURG. PER HOLD, PATIENT WAS WITH INCREASED AGITATION AND COMBATIVE BEHAVIOR. ON FACE TO FACE PATIENT IS ALERT AND ORIENTED X 1, CONFUSED, DISORGANIZED AND DISORIENTED. VITAL SIGNS CHECKED AND RECORDED. BLOOD SUGAR CHECKED, WAS 98. ASSESSMENT OF BODY SYSTEMS COMPLETED. SKIN/ BODY CHECK DONE. SCABS NOTED ON THE HEAD AND BILATERAL ARMS. BRUISES WERE ALSO NOTED ON BOTH ARMS. PICTURES TAKEN. PATIENT ADMITTED UNDER FOR PSYCH AND DR. JOHN HARDIN FOR MEDICAL. PATIENT HAS A PSYCH HISTORY OF ANXIETY AND PSYCHOSIS AND MEDICAL HISTORY OF DEMENTIA, HYPERTENSION, DIABETES, BPH, AND CABG. MRSA SWAB DONE. PATIENT FOR PT EVAL. WILL MONITOR PATIENT Q 15 MINS FOR SAFETY AND BEHAVIORS.
[~2016-11-21 21:22] MED LIST changes: +QUET25TA PO; +SULF1TAB48 PO
[2016-11-21] MEDS ORDERED: MAG HYDROX/AL HYDROX/SIMETH 30 ML UDC PO PRN (21:30)
[2016-11-21] MEDS ORDERED: MAGNESIUM HYDROXIDE 30 ML UDC PO PRN (21:30)
[2016-11-21] MEDS ORDERED: ACETAMINOPHEN 325 MG TABLET PO PRN ×2 (21:30→22:00)
[2016-11-21] MEDS ORDERED: SENNOSIDES 8.6 MG TABLET PO PRN (22:00)
[2016-11-21] MEDS ORDERED: BISACODYL SUPP (10 MG) 10 MG/SUPP.RECT SUPP.RECT RC PRN (22:00)
[2016-11-21] MEDS ORDERED: ATORVASTATIN 40 MG TABLET ONE (22:44)
[2016-11-21] MEDS: ATORVASTATIN 40 MG TABLET PO SCH (23:09)
--- NOTE | 2016-11-22 06:30 | NUR ---
GPS RN NOTES CALL MADE TO PATIENTS DAUGHTER. NOTIFIED HER OF PATIENTS TRANSFER TO [facility] UNIT.
[2016-11-22 07:34] LABS: BASOPHILS % (AUTO) 0.5 % (0.0-2.0); EOSINOPHILS # (AUTO) 0.2 /CMM (0.0-0.7); HEMATOCRIT 35 % (39-51); HEMOGLOBIN 11.4 g/dL (13.5-17.5); LYMPHOCYTES % (AUTO) 60.9 % (20.0-44.0); MEAN CORPUSCULAR HEMOGLOBIN 28 PG (26.0-33.0); MEAN CORPUSCULAR HGB CONC 32 g/dl (31.0-36.0); MEAN CORPUSCULAR VOLUME 86 fL (80-96); MONOCYTES # (AUTO) 0.7 /CMM (0.1-1.30); MONOCYTES % (AUTO) 6.8 % (2.0-12.0); NEUTROPHILS # (AUTO) 2.9 /CMM (1.8-8.9); NEUTROPHILS % (AUTO) 29.8 % (43.0-81.0); PLATELET COUNT (AUTO) 265 /CMM (150-450); RDW COEFFICIENT OF VARIATION 14.4 (11.5-15.0); RED BLOOD CELL COUNT(AUTO) 4.11 MIL/uL (4.5-6.0); WHITE BLOOD COUNT (AUTO) 9.8 K/uL (4.3-11.0)
[2016-11-22 07:55] LABS: CHOLESTEROL 166 mg/dL (<200); HDL CHOLESTEROL 36 mg/dL (40-60); LDL 107 mg/dL (0-99); TRIGLYCERIDES 64 mg/dL (30-150)
[2016-11-22 08:00] VITALS: BP 131/76
[2016-11-22 08:01] LABS: ALBUMIN 2.5 g/dL (3.4-5.0); BILIRUBIN,TOTAL 0.5 mg/dL (0.2-1.0); CALCIUM, SERUM 8.6 mg/dL (8.5-10.1); CREATININE 0.9 mg/dL (0.6-1.3); TOTAL PROTEIN, SERUM 5.8 g/dL (6.4-8.2)
[2016-11-22 08:43] LABS: ANISOCYTOSIS 1+; LYMPHOCYTES % (MANUAL) 57 % (16-48); MONOCYTES % (MANUAL) 6 % (0-11.0); NEUTROPHILS % (MANUAL) 37 (42-76); PLATELET ESTIMATE ADEQUATE
[2016-11-22] MEDS: ASPIRIN 81 MG TAB.CHEW PO SCH ×2 (09:00→09:10)
[2016-11-22] MEDS: SULFAMETH/TRIMETH 800/160 MG 1 UDTAB TABLET PO SCH ×3 (09:00→21:36)
[2016-11-22] MEDS: AMLODIPINE BESYLATE 10 MG TABLET PO SCH ×2 (09:00→09:11)
[2016-11-22] MEDS: MULTIVITAMINS,THERAPEUTIC 1 UDTAB TABLET PO SCH ×2 (09:00→09:11)
[2016-11-22] MEDS: FINASTERIDE (5 MG) 5 MG TABLET PO SCH ×2 (09:00→09:11)
[2016-11-22] MEDS: LISINOPRIL (20MG) 20 MG TABLET PO SCH ×2 (09:00→09:11)
[2016-11-22] MEDS ORDERED: Medication Not On Formulary EA (Cranberry Extract (Cranberry) 450 MG) PO SCH (09:00)
--- NOTE | 2016-11-22 10:50 | NUR ---
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 saldivar with orders. orders acknowledged.
--- NOTE | 2016-11-22 15:48 | NUR ---
Initial DC Plan: Patient resides at [address], [place] [address]; [phone]. MAYTE Paz spoke to the patient's dtr Ana Van ([phone]) who wants patient to return. MAYTE will follow up with facility to see if they will re-accept the patient. SW will help form a safe and proper discharge.
[2016-11-22 16:00] VITALS: BP 104/71
[2016-11-22] MEDS: QUETIAPINE FUMARATE 25 MG TABLET PO SCH ×3 (16:34→21:50)
[2016-11-22] MEDS: LORAZEPAM 0.5 MG TABLET PO PRN (20:04)
[2016-11-22 20:14] VITALS: BP_SYST 101; BP_SYST 171; BP_DIAS 101; BP_DIAS 56
[2016-11-22] MEDS: ZOLPIDEM TARTRATE 5 MG TABLET PO PRN (21:50)
[2016-11-22] MEDS: ATORVASTATIN 40 MG TABLET PO SCH (21:50)
[2016-11-23 08:00] VITALS: BP 129/79
[2016-11-23] MEDS: SULFAMETH/TRIMETH 800/160 MG 1 UDTAB TABLET PO SCH ×2 (08:27→20:03)
[2016-11-23] MEDS: AMLODIPINE BESYLATE 10 MG TABLET PO SCH (08:27)
[2016-11-23] MEDS: MULTIVITAMINS,THERAPEUTIC 1 UDTAB TABLET PO SCH (08:27)
[2016-11-23] MEDS: ASPIRIN 81 MG TAB.CHEW PO SCH (08:27)
[2016-11-23] MEDS: FINASTERIDE (5 MG) 5 MG TABLET PO SCH (08:27)
[2016-11-23] MEDS: LISINOPRIL (20MG) 20 MG TABLET PO SCH (08:28)
[2016-11-23] MEDS: QUETIAPINE FUMARATE 25 MG TABLET PO SCH ×3 (08:28→21:14)
[2016-11-23 16:00] VITALS: BP 137/73
[2016-11-23 20:00] VITALS: BP 139/79
[2016-11-23 20:22] LABS: BASOPHILS # (AUTO) 0.1 /CMM (0.0-0.2); BASOPHILS % (AUTO) 0.6 % (0.0-2.0); EOSINOPHILS # (AUTO) 0.2 /CMM (0.0-0.7); EOSINOPHILS % (AUTO) 1.6 % (0.0-6.0); HEMATOCRIT 36 % (39-51); HEMOGLOBIN 11.6 g/dL (13.5-17.5); LYMPHOCYTES # (AUTO) 5.7 /CMM (0.8-4.8); MEAN CORPUSCULAR HEMOGLOBIN 27 PG (26.0-33.0); MEAN CORPUSCULAR HGB CONC 32 g/dl (31.0-36.0); MEAN CORPUSCULAR VOLUME 86 fL (80-96); MONOCYTES # (AUTO) 0.7 /CMM (0.1-1.30); MONOCYTES % (AUTO) 6.8 % (2.0-12.0); NEUTROPHILS # (AUTO) 3.9 /CMM (1.8-8.9); PLATELET COUNT (AUTO) 258 /CMM (150-450); RDW COEFFICIENT OF VARIATION 14.3 (11.5-15.0); RED BLOOD CELL COUNT(AUTO) 4.23 MIL/uL (4.5-6.0); WHITE BLOOD COUNT (AUTO) 10.5 K/uL (4.3-11.0)
[2016-11-23 20:24] LABS: CALCIUM, SERUM 8.9 mg/dL (8.5-10.1); CREATININE 1.2 mg/dL (0.6-1.3); POTASSIUM 4.1 mmol/L (3.5-5.1)
[2016-11-23] MEDS: ATORVASTATIN 40 MG TABLET PO SCH (21:14)
[2016-11-23] MEDS: ZOLPIDEM TARTRATE 5 MG TABLET PO PRN (22:08)
[2016-11-24 08:00] VITALS: BP 117/66
[2016-11-24] MEDS: MULTIVITAMINS,THERAPEUTIC 1 UDTAB TABLET PO SCH ×2 (09:00→09:14)
[2016-11-24] MEDS: LISINOPRIL (20MG) 20 MG TABLET PO SCH ×2 (09:00→09:15)
[2016-11-24] MEDS: ASPIRIN 81 MG TAB.CHEW PO SCH ×2 (09:00→09:14)
[2016-11-24] MEDS: FINASTERIDE (5 MG) 5 MG TABLET PO SCH ×2 (09:00→09:13)
[2016-11-24] MEDS: AMLODIPINE BESYLATE 10 MG TABLET PO SCH ×2 (09:00→09:14)
[2016-11-24] MEDS: SULFAMETH/TRIMETH 800/160 MG 1 UDTAB TABLET PO SCH ×3 (09:14→21:58)
[2016-11-24] MEDS: QUETIAPINE FUMARATE 25 MG TABLET PO SCH ×4 (09:15→21:58)
[2016-11-24 16:00] VITALS: BP 148/84
[2016-11-24 20:11] VITALS: BP 112/49
[2016-11-24] MEDS: ATORVASTATIN 40 MG TABLET PO SCH (21:58)
[2016-11-24] MEDS: ZOLPIDEM TARTRATE 5 MG TABLET PO PRN (23:25)
--- NOTE | 2016-11-24 23:25 | NUR ---
GPS RN NOTE, PATIENT HAS A COMPLAINT OF NOT BEING ABLE TO SLEEP AND WOULD LIKE A SLEEPING AID AT THIS TIME. PATIENT VITAL SIGNS ARE STABLE. GAVE AMBIEN 5MG PO HAS ORDERED. WILL REASSESS FOR INSOMNIA AND I WILL CONTINUE TO MONITOR THIS PATIENT.
--- NOTE | 2016-11-25 00:16 | NUR ---
Pt has been quite paranoid, fragmented, confused, dismissive, & difficult to redirect. He needed lots of promptings to take his noc po meds last night.
[2016-11-25 08:00] VITALS: BP 142/75
[2016-11-25] MEDS: SULFAMETH/TRIMETH 800/160 MG 1 UDTAB TABLET PO SCH ×2 (08:41→21:08)
[2016-11-25] MEDS: ASPIRIN 81 MG TAB.CHEW PO SCH (08:44)
[2016-11-25] MEDS: AMLODIPINE BESYLATE 10 MG TABLET PO SCH (08:44)
[2016-11-25] MEDS: FINASTERIDE (5 MG) 5 MG TABLET PO SCH (08:44)
[2016-11-25] MEDS: QUETIAPINE FUMARATE 25 MG TABLET PO SCH (08:44)
[2016-11-25] MEDS: LISINOPRIL (20MG) 20 MG TABLET PO SCH (08:44)
[2016-11-25] MEDS: MULTIVITAMINS,THERAPEUTIC 1 UDTAB TABLET PO SCH (08:45)
[2016-11-25 09:39] LABS: CALCIUM, SERUM 8.3 mg/dL (8.5-10.1); CREATININE 1.5 mg/dL (0.6-1.3); POTASSIUM 3.8 mmol/L (3.5-5.1)
--- NOTE | 2016-11-25 11:27 | NUR ---
SW confirmed with Cornelia from [address], [place] [address]; [phone] and pt. is able to return to the facility.
[2016-11-25] MEDS ORDERED: IV D5/0.45 NACL 1,000 ML IV ONE (13:30)
[2016-11-25] MEDS ORDERED: IV SET PRIMARY PUMP SET 1 EA INFUS.SET MC ONE (14:15)
--- NOTE | 2016-11-25 14:30 | NUR ---
GPS/RN IV INSERTED INTO LEFT FOREARM 22 GAUGE, D51/2NS INFUSING @ 75ML HR. TOLERATED WELL. Addendum: 11/25/16 at 1734 by PRABHJOT ALONZO RN RIGHT FOREARM
[2016-11-25 16:00] VITALS: BP 152/71
--- NOTE | 2016-11-25 19:30 | NUR ---
GPS RN NOTE, RECEIVED PATIENT AWAKE AND IN BED, NO S/S OR COMPLAINTS OF PAIN AT THIS TIME. PATIENT IS DISPLAYING NO S/S OF APPARENT DISTRESS AT THIS TIME. PATIENT BREATHING IS UNLABORED WITH EQUAL RISE AND FALL OF THE CHEST. PATIENT IS ALERT AND ORIENTED X 3 ON ROOM AIR WITH A SPO2 OF 97%. IVF D5 1/2 @ 75 ML HR INFUSING WELL INTO RIGHT AC 22 GAUGE THAT IS INTACT, PATENT, AND FLUSHING WELL WITH NO S/S OF INFILTRATION. PATIENT HAS A ONE TO ONE SITTER FOR IV INFUSION. PATIENT IS MED SELECTIVE, DISORGANIZED, DISORIENTED, CONFUSED AND NEEDS REORIENTATION. PATIENT DENIES SUICIDE IDEATIONS AND HOMICIDAL IDEATIONS AT THIS TIME. PATIENT ASSISTED WITH TURNING AND REPOSITIONING Q2HR AND PRN FOR COMFORT AND CIRCULATION. PATIENT HAS NO NEEDS AT THIS TIME. PATIENT EDUCATED ON THE USE OF THE CALL WOODS. PATIENT BED SIDE RAILS ARE UP X2 FOR SAFETY, BED IS LOCKED AND LOW WILL CONTINUE TO MONITOR AND MAINTAIN SAFETY.
[2016-11-25 20:00] VITALS: BP 153/62
[2016-11-25 20:02] VITALS: BP 153/62
[2016-11-25] MEDS: ATORVASTATIN 40 MG TABLET PO SCH (21:09)
[2016-11-25] MEDS ORDERED: QUETIAPINE FUMARATE 100 MG TABLET PO SCH (22:00)
[2016-11-26 08:44] VITALS: BP 155/72
[2016-11-26] MEDS: MULTIVITAMINS,THERAPEUTIC 1 UDTAB TABLET PO SCH (09:00)
[2016-11-26] MEDS: LISINOPRIL (20MG) 20 MG TABLET PO SCH (09:00)
[2016-11-26] MEDS: AMLODIPINE BESYLATE 10 MG TABLET PO SCH (09:00)
[2016-11-26] MEDS: ASPIRIN 81 MG TAB.CHEW PO SCH (09:00)
[2016-11-26] MEDS: FINASTERIDE (5 MG) 5 MG TABLET PO SCH (09:00)
[2016-11-26] MEDS: SULFAMETH/TRIMETH 800/160 MG 1 UDTAB TABLET PO SCH ×2 (09:00→21:59)
--- NOTE | 2016-11-26 09:00 | NUR ---
GPS/RN PATIENT REFUSED ALL 0900 MEDICATIONS X 3, EXPLAINED RISKS AND BENEFITS, HOWEVER, PATIENT IS CONFUSED AND CONTINUES TO REFUSE. WILL CONTINUE TO ENCOURAGE PATIENT TO COMPLY WITH MD REGIMEN.
[2016-11-26 16:16] VITALS: BP 157/80
[2016-11-26] MEDS: ATORVASTATIN 40 MG TABLET PO SCH (21:58)
[2016-11-26] MEDS: QUETIAPINE FUMARATE 100 MG TABLET PO SCH (21:59)
[2016-11-26] MEDS: ZOLPIDEM TARTRATE 5 MG TABLET PO PRN (23:35)
[2016-11-27] MEDS: ASPIRIN 81 MG TAB.CHEW PO SCH (08:10)
[2016-11-27] MEDS: LISINOPRIL (20MG) 20 MG TABLET PO SCH (08:11)
[2016-11-27] MEDS: SULFAMETH/TRIMETH 800/160 MG 1 UDTAB TABLET PO SCH ×2 (08:11→21:55)
[2016-11-27] MEDS: MULTIVITAMINS,THERAPEUTIC 1 UDTAB TABLET PO SCH (08:12)
[2016-11-27] MEDS: AMLODIPINE BESYLATE 10 MG TABLET PO SCH (08:12)
[2016-11-27] MEDS: FINASTERIDE (5 MG) 5 MG TABLET PO SCH (08:12)
[2016-11-27 08:15] VITALS: BP 130/70
[2016-11-27] MEDS: LORAZEPAM 0.5 MG TABLET PO PRN ×2 (13:46→20:43)
--- NOTE | 2016-11-27 14:41 | NUR ---
diversified crops i farmworker spoke to patient's dtr Ana Van ([phone]) to inform her that patient will be returning to [facility] [address], [place] [address]; [phone]. Patient's daughter Ana was agreeable with the discharge plan.
[2016-11-27 16:00] VITALS: BP 139/77
[2016-11-27 20:28] VITALS: BP 132/63
[2016-11-27] MEDS: QUETIAPINE FUMARATE 100 MG TABLET PO SCH (21:55)
[2016-11-27] MEDS: ATORVASTATIN 40 MG TABLET PO SCH (21:56)
[2016-11-28 08:00] VITALS: BP 132/64
[2016-11-28] MEDS ORDERED: Z GUARD REMEDY 2 OZ OINT TP SCH (09:00)
[2016-11-28] MEDS: SULFAMETH/TRIMETH 800/160 MG 1 UDTAB TABLET PO SCH (09:01)
[2016-11-28] MEDS: LISINOPRIL (20MG) 20 MG TABLET PO SCH (09:01)
[2016-11-28] MEDS: ASPIRIN 81 MG TAB.CHEW PO SCH (09:01)
[2016-11-28] MEDS: MULTIVITAMINS,THERAPEUTIC 1 UDTAB TABLET PO SCH (09:02)
[2016-11-28] MEDS: AMLODIPINE BESYLATE 10 MG TABLET PO SCH (09:02)
[2016-11-28] MEDS: FINASTERIDE (5 MG) 5 MG TABLET PO SCH (09:02)
[2016-11-28 16:25] VITALS: BP 104/60
--- NOTE | 2016-11-28 19:45 | NUR ---
GPS SEISMOGRAPH OBSERVER NOTES RECEIVED PATIENT SITTING ON A CHAIR IN THE DAY ROOM WAITING FOR DISCHARGE. VITAL SIGNS CHECKED AND RECORDED. AFEBRILE. VITAL SIGNS WERE FOLLOWS: T=98.2, P=68, R=18, OS=453/60MMHG, X1EKT=06. PATIENT IS CALM AND COOPERATIVE. NO RESPIRATORY DISTRESS NOTED. DENIES SUICIDAL AND HOMICIDAL IDEATION. 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 BELONGINGS RETURNED TO PATIENT. DISCHARGE PACKET AND INSTRUCTIONS GIVEN. PATIENT DISCHARGED IN GOOD CONDITION. OUT OF UNIT AT 1945.
--- NOTE | 2016-11-29 10:15 | NUR ---
Discharge Note: Patient was discharged back to [address] [place] [address] . Via facility transportation. Patient's daughter Ana Van was notified. Patient and patient's daughter were agreeable with the discharge plan. Patient's mood and affect were appropriate upon discharge. Patient denied suicidal and homicidal ideations. Facilitated info to IDT team who are in agreement with discharge arrangement. The multidisciplinary exitcare form was done, printed, signed, and given to the patient.
== END 2016-11-28 19:45 | DRG 885 ==
LOC: GPS 21:22
PROVIDERS: ADMIT Psychiatry & Neurology Psychiatry; ATTEND Contractor
DX: F29 Unspecified psychosis not due to a substance or known physiological condition (principal); N18.9 Chronic kidney disease, unspecified; F03.91 Unspecified dementia, unspecified severity, with behavioral disturbance; F41.9 Anxiety disorder, unspecified; I25.10 Atherosclerotic heart disease of native coronary artery without angina pectoris; N40.0 Benign prostatic hyperplasia without lower urinary tract symptoms; E11.22 Type 2 diabetes mellitus with diabetic chronic kidney disease; I12.9 Hypertensive chronic kidney disease with stage 1 through stage 4 chronic kidney disease, or unspecified chronic kidney disease; D64.9 Anemia, unspecified; E78.5 Hyperlipidemia, unspecified; Z79.899 Other long term (current) drug therapy; Z95.1 Presence of aortocoronary bypass graft
CPT/HCPCS: 36415; 80048-TC; 80053-TC; 80061-TC; 82962-TC; 85025-TC; 87081-TC; 97001-TC; 97116-TC; 97530-TC; J3490